=== PATIENT | male | born 1955 | race Caucasian/White ===

== ENCOUNTER 2017-04-12 06:53 | Day surgery (SDC) | payer OTHER ==
[~2017-04-12 06:53] MED LIST: Buffered Lidocaine 0.9% SYRIN* 5 ML/SYR SYRINGE INTRADERM ONE; Buffered Lidocaine 0.9% SYRIN* 5 ML/SYR SYRINGE ONE
[2017-04-12] MEDS ORDERED: Bupivacaine 0.25% SDV* 30 ML ONE (07:12)
[2017-04-12] MEDS ORDERED: fentaNYL* 50 MCG/ML 2 ML VIAL (100 MCG VIAL) ONE (07:39)
[2017-04-12] MEDS ORDERED: Propofol* 10 MG/ML 20 ML BTL IV PUSH ONE (07:39)
[2017-04-12] MEDS ORDERED: Midazolam* 1 MG/ML 2 ML VIAL (2 MG) ONE (07:39)
[2017-04-12 08:45] VITALS: BP 134/84
--- NOTE | 2017-04-12 21:10 | OP ---
DATE OF OPERATION: 04/12/17 - [facility] DATE OF : 55 SURGEON: Jacinto Hernández MD TIGHTENING MACHINE OPERATOR: TREY Tracey ANESTHESIOLOGIST: Dr. Corey Chandler. ANESTHESIA: Local MAC. PRE-OP DIAGNOSES: Left middle trigger finger. POST-OP DIAGNOSES: Left middle trigger finger. OPERATIVE PROCEDURE: Left middle finger flexor tenosynovectomy with release of very most proximal part of the A1 porsche. INDICATIONS: Jeremiah is a 61-year-old male with very well-controlled rheumatoid arthritis. He has been on medications for this for 15 years. He has had really no progression of any deformities in the hand. He came into my office a while back with a trigger finger. I gave him an injection, it went away, then he came back. We had talked about treatment options including repeat injections versus surgery. He wanted to proceed with surgery. We talked about risks of the procedure specifically rheumatoid patients, particularly precipitating ulnar drift in the finger. We also talked about the higher chance for needing to excise the slip of the FDS as well. He understood this, he wished to proceed. ESTIMATED BLOOD LOSS: 2 mL. COMPLICATIONS: None. FINDINGS: Significant amount of flexor tenosynovitis, but no significant nodules along the course of the left middle finger flexor tendons. The proximal A1 porsche was a bit degenerative. The distal A1 porsche looked very healthy. DESCRIPTION OF PROCEDURE: Jeremiah was seen in the preoperative holding area and the correct side, site, and procedure were identified. We came back to the operating room where anesthesia was induced, the arm was prepped and draped in the usual fashion. A formal time-out was performed. We began by making a John-type incision starting at the A1 porsche and extending proximally into the palm. He has had a prior carpal tunnel release on this side. I stopped the incision short of that. Dissection was carried down full thickness bluntly taking care to visualize and preserve the digital nerves. I encountered the proximal aspect of the A1 porsche. There was some tenosynovitis proximal to this. I used the tenotomy scissors to excise all the flexor tenosynovitis off the FDS and the FDP tendons. This was handed off as a specimen. I pulled both of the tendons down into the palm individually and completed the tenosynovectomy to the extent possible. At this point, I fully examined the A1 porsche. The distal two- thirds looked nice and healthy. There was a small defect between the proximal third and distal two-thirds where there was a little bit of synovitis pouching off through this. I went ahead and just released the proximal third that was degenerative and frayed and completed the tenosynovectomy. At this point, he was woken up. I had him flex and open and close the hand multiple times. There was absolutely no triggering. The alignment was very nice. I went ahead at this point and then irrigated out the wound and the skin was closed with some 4-0 nylon suture. The wound was dressed with Xeroform, 4x4s, sterile Webril, and Rito wrap. He was taken to the recovery room in stable condition. [id number] #: [id number] CHANTE
== END 2017-04-12 08:58 | disposition home or self-care (01) ==
LOC: OREAST 06:53
PROVIDERS: ATTEND Orthopaedic Surgery Hand Surgery
DX: M65.332 Trigger finger, left middle finger (principal); M06.9 Rheumatoid arthritis, unspecified; F17.210 Nicotine dependence, cigarettes, uncomplicated; Z79.52 Long term (current) use of systemic steroids; Z79.899 Other long term (current) drug therapy
CPT/HCPCS: 88304; J2250; J2704; J3010